=== PATIENT | female | born 1960 | race Caucasian/White ===

== ENCOUNTER 2016-10-26 19:43 | Emergency (ER) | payer OTHER ==
[~2016-10-26] VITALS: Ht 172.7 cm; Wt 77.5 kg
[2016-10-26 19:49] VITALS: Ht 172.7 cm; Wt 77.5 kg
--- NOTE | 2016-10-26 21:40 | ERD ---
ER Documentation Chief Complaint Date/Time DATE: 10/26/16 TIME: 21:39 Chief Complaint BIB SELF, CC: SWELLING AROUND ANTERIOR NECK LYMPH NODES BILATERAL X 1 DAY HPI Bulgarian-speaking 56-year-old female presents to emergency department today for sudden onset of sore throat, symptoms started tonight at 1800, denies fever, chills, body ache, patient is able to eat and drink without deficit, sick contacts. Has tried no [id number] medication for symptomatic relief. ROS All systems reviewed and are negative except as per history of present illness. Allergies Allergies: Coded Allergies: No Known Allergy (Unverified , 10/26/16) PMhx/Soc Medical and Surgical Hx: pt denies Surgical Hx Hx Miscellaneous Medical Probl: Yes (ARTHRITIS) Hx Alcohol Use: No Hx Substance Use: No Hx Tobacco Use: No Smoking Status: Never smoker Physical Exam Vitals Vital Signs Date Time Temp Pulse Resp B/P Pulse Ox O2 Delivery O2 Flow Rate FiO2 10/26/16 19:49 98.0 78 18 133/61 100 Stable, triage notes reviewed Physical Exam Const: Nourished well hydrated well appearing 56-year-old female no acute distress Head: Atraumatic Eyes: Normal Conjunctiva PERRLA, EOMI ENT: Tympanic membranes translucent, nasal mucosa edematous, mucus noted, pharynx is pink, tonsils +2-1/2 without exudate, uvula is midline without shift rises and falls with pronation tongue is midline and moist. Neck: Full range of motion..~ No meningismus. No cervical chain nodes Resp: Clear to auscultation bilaterally no rales wheezes or rhonchi Cardio: S1-S2 no S3-S4 regular rate and rhythm, no murmurs Abd: Soft, non tender, non distended. Normal bowel sounds Skin: No petechiae or rashes Back: Ext: Neur: Awake and alert Psych: Normal Mood and Affect Procedures/MDM This pleasant 56-year-old Bulgarian-speaking female presents to emergency department with her , application support technician provided by [email or web address] poli speak in translate. Patient is here for a 4 hours sore throat with swollen tonsils. She is able to eat and drink without deficit, denies any body aches fever or chills. Her exam findings support enlarged tonsils without exudate. She is afebrile and appears well, no deficit. I have little suspicion for peritonsillar abscess, uvulitis, or rheumatic fever. Today's emergency room course includes rapid strep evaluation to rule out strep pharyngitis. Laboratory findings negative for evidence of infection. Patient will be discharged home with Tylenol, instructed to use as needed for pain and/or fever. Fluids, increase rest Patient is stable with no new complaints during ER course, clinically there is no current evidence to suggest meningitis, sepsis , influenza or any other emergent condition appearing to require further evaluation or hospitalization. I feel the patient is stable for discharge at this time. I have discussed results, examination findings, the treatment plan with the patient and family present prior to discharge. Indications for emergent reevaluation, side effects of medication were also discussed. All questions were answered. Patient verbalizes understanding and agrees with plan of care. Departure Diagnosis: Primary Impression: Tonsillar hypertrophy Condition: Good Patient Instructions: When You Have a Sore Throat [facility] Additional Instructions: Thank you for for coming to [facility] for your care today. Please ask your nurse or provider if you have questions about your care today and do not leave until all your questions have been answered. Please use any medications given as directed and follow-up with your doctor (or the doctor you were referred to) in the next 2-3 days. If you do not have a primary care doctor you may follow up at the community [facility] [place] (listed below). You may also use motrin and tylenol as needed for fever and/or pain unless instructed otherwise by your provider or nurse. Indications for more urgent follow-up have been discussed, but you may return to the Emergency Department at ANY time for any worrisome or worsening symptoms. If you have abdominal pain, please know that no test or exam you received is perfect and you should follow up within 8 hours for continued pain. If you had any imaging studies today, such as an X-Ray or CT Scan, these studies will be reviewed later by a radiologist. You will be called if there are important findings that were not identified today, so make sure the contact information you provided at registration is correct. If you received any narcotic pain control medicine today, such as Vicodin, Morphine or Dilaudid, your coordination and judgment may be affected for a number of hours. Please do not drive or operate heavy machinery, and you may want someone to assist you at home. If you were given a prescription for narcotic medication, be aware that it is very addictive- use sparingly and only if necessary. LINNEA LUNA Oct 26, 2016 21:40
[2016-10-27] MEDS ORDERED: ACET500C5 PO (00:58)
[2016-10-27 01:09] VITALS: BP 123/66; PULSE 70; RESP 20; TEMP 98
== END 2016-10-27 01:10 | disposition home or self-care (01) ==
LOC: FTE 19:43
DX: J35.1 Hypertrophy of tonsils (principal)
CPT/HCPCS: 87880; Z7502; 99283

== ENCOUNTER 2016-12-22 14:40 | Day surgery (SDC) | payer OTHER ==
[~2016-12-22] VITALS: Ht 152.4 cm; Wt 75.6 kg
[~2016-12-22 14:40] MED LIST: ACET500C5 PO
[2016-12-22] MEDS ORDERED: METHOTREXATE (15:37)
[2016-12-22] MEDS ORDERED: FOLIC ACID (15:37)
[2016-12-22] MEDS ORDERED: [UNRECOGNIZED DRUG - OTHER] (15:37)
[2016-12-22 15:40] VITALS: BP 122/58; PULSE 92; RESP 18
[2016-12-22] MEDS ORDERED: FENTAnyl 50 MCG/ML VIAL ONE (16:18)
[2016-12-22] MEDS ORDERED: MIDAZOLAM 1 MG/ML 2 ML INJ ONE ×2 (16:18)
--- NOTE | 2016-12-22 16:19 | OPPN ---
Date/Time of Note Date/Time of Note DATE: 12/22/16 TIME: 16:17 Operative Report Preoperative Diagnosis Abdominal pain Change in bowel habit Postoperative Diagnosis Gastritis with erosions Small gastric polyps Operation/Procedure Performed Esophagogastroduodenoscopy and biopsy Colonoscopy Surgeon see signature line engineer second assistant None Anesthesia: moderate sedation Estimated blood loss: none Transfusion Required none Specimen Gastric mucosal biopsy Grafts/Implants none Complications none VERO EDDY MD Dec 22, 2016 16:18
[2016-12-22 16:45] VITALS: BP 103/59; RESP 15
--- NOTE | 2016-12-22 19:51 | GILP ---
DATE OF PROCEDURE: 12/22/2016 NAME OF PROCEDURES: 1. Esophagogastroduodenoscopy and biopsy. 2. Colonoscopy. SURGEON: Vero Nogueira MD PREOPERATIVE DIAGNOSES: 1. Abdominal pain. 2. Change in bowel habit. POSTOPERATIVE DIAGNOSES: 1. Gastritis with erosions. 2. Multiple small gastric polyps. 3. Gastric mucosal biopsies were taken for Helicobacter pylori test. 4. Colonoscopy all the way to the cecum. 5. Diverticulosis of the colon. 6. Internal hemorrhoids. 7. No colon neoplasm was identified. INDICATION FOR THE PROCEDURE: The patient is a 56-year-old female patient who had upper abdominal p ain, not responding to therapy. She also noticed a change in the bowel habit. The patient was sche duled for endoscopy and colonoscopy for further evaluation. The procedures and possible complications were well explained to the patient. The patient understoo d and consented to the procedures. DESCRIPTION OF PROCEDURE: Under the influence of fentanyl and Versed, the gastroscope was carefully introduced into the esophagus and under direct vision, it was advanced to the stomach and through t he pylorus into the duodenal bulb and descending duodenum. FINDINGS: ESOPHAGUS: The patient had normal esophageal mucosa. STOMACH: The patient had gastritis with erosions. The patient also had multiple small gastric poly ps. Gastric mucosal biopsies were taken for H. pylori test. DUODENUM: Normal. The colonoscope was carefully introduced in the rectum and under direct vision, it was advanced all the way to the cecum. FINDINGS: The patient had diverticulosis of the colon. She also had internal hemorrhoids. No colo n neoplasm was identified. The patient tolerated the procedure very well and there was no complication from the procedures. At the end of the procedures, she was awake with stable vital signs and she was discharged home to the care of her family. IMPRESSION: Please see postoperative diagnosis. PLAN: 1. Omeprazole 40 mg p.o. q.a.m. 2. Await H. pylori test report. 3. Advised high fiber diet. 4. Next screening colonoscopy in 10 years. Dictated By: VERO ELENA/MELANIE Conf#: [id number] DID#: [id number]
== END 2016-12-22 18:02 | disposition home or self-care (01) ==
LOC: GIL 14:40
PROVIDERS: ATTEND Internal Medicine Gastroenterology
DX: R19.4 Change in bowel habit (principal); K57.90 Diverticulosis of intestine, part unspecified, without perforation or abscess without bleeding; K64.8 Other hemorrhoids; K31.7 Polyp of stomach and duodenum; K29.60 Other gastritis without bleeding
CPT/HCPCS: 43239; 45378; 87081; J2250; J3010; Z7610